=== PATIENT | male | born 1960 | race Caucasian/White ===

== ENCOUNTER 2023-02-17 07:33 | Day surgery (SDC) | payer BC ==
[2023-02-13 11:03] VITALS: BMI 29.2
[2023-02-17] MEDS ORDERED: Dexmedetomidine 200 MCG/2 ML VIAL ONE (08:20)
[2023-02-17] MEDS ORDERED: PROPOFOL 20 ML ONE (09:27)
[2023-02-17] MEDS ORDERED: Midazolam HCl 2 mg/2 ml Vial ONE (09:27)
[2023-02-17] MEDS ORDERED: Dexamethasone 20 MG/5 ML VIAL ONE (09:27)
[2023-02-17] MEDS ORDERED: Ondansetron PF 4 MG/2 ML Vial ONE (09:27)
[2023-02-17] MEDS ORDERED: Lidocaine 1% PF 5 ML VIAL ONE (09:27)
[2023-02-17] MEDS ORDERED: fentaNYL 50 mcg/mL 1 mL Vial ONE (09:27)
[2023-02-17] MEDS ORDERED: Rocuronium Bromide 10 MG/ML (10ML VIAL) ONE (09:27)
[2023-02-17] MEDS ORDERED: EPINEPHrine 1 MG/ML AMP ONE (09:48)
== END 2023-02-17 12:00 | disposition home or self-care (01) ==
LOC: CSHSDC 07:33
PROVIDERS: ATTEND Otolaryngology Otolaryngic Allergy
PROC: 07JN3ZZ Inspection of Lymphatic, Percutaneous Approach (ICD-10-PCS; principal; 2023-02-17)
PROC: 0DJ08ZZ Inspection of Upper Intestinal Tract, Via Natural or Artificial Opening Endoscopic (ICD-10-PCS; principal; 2023-02-17)
PROC: 0CBS8ZX Excision of Larynx, Via Natural or Artificial Opening Endoscopic, Diagnostic (ICD-10-PCS; principal; 2023-02-17)
DX: C77.0 Secondary and unspecified malignant neoplasm of lymph nodes of head, face and neck (principal); R22.1 Localized swelling, mass and lump, neck; E11.9 Type 2 diabetes mellitus without complications; Z87.891 Personal history of nicotine dependence; Z91.018 Allergy to other foods; Z79.899 Other long term (current) drug therapy
CPT/HCPCS: 88112; 88305; 88331; 88341; 88342; J0171; J1100; J2250; J2405; J2704; J3010